=== PATIENT | male | born 1940 | race Caucasian/White ===

== ENCOUNTER 2016-11-15 09:56 | Observation (INO) | payer MEDICARE, OTHER ==
[~2016-11-15] VITALS: Ht 165.1 cm; Wt 55.5 kg
[2016-11-15] VITALS (7 sets, daily range): BP systolic 122–167; BP diastolic 63–76; PULSE 62–78; RESP 18–21; TEMP 98; Ht 165.1 cm; Wt 55.5 kg
[2016-11-15] MEDS ORDERED: ASPIRIN 325 MG TAB PO STA (10:28)
[2016-11-15 11:03] LABS: ADD SCAN DIFF NO
[2016-11-15 11:08] LABS: BASOPHILS % 0.7 % (0.0-2.0); EOSINOPHILS # 0.1 10^3/ul (0.0-0.5); EOSINOPHILS % 2.4 % (0.0-7.0); HEMATOCRIT 30.9 % (42.0-52.0); LYMPHOCYTES # 1.7 10^3/ul (0.8-2.9); LYMPHOCYTES % 29.8 % (15.0-51.0); MEAN CORPUSCULAR HEMOGLOBIN 34.5 pg (29.0-33.0); MEAN CORPUSCULAR HGB CONC 35.6 g/dl (32.0-37.0); MEAN CORPUSCULAR VOLUME 96.9 fl (82.0-101.0); MEAN PLATELET VOLUME 12.1 fl (7.4-10.4); MONOCYTE # 0.4 10^3/ul (0.3-0.9); MONOCYTES % 7.4 % (0.0-11.0); NEUTROPHIL # 3.4 10^3/ul (1.6-7.5); NEUTROPHILS % 59.5 % (39.0-77.0); PLATELET COUNT 188 10^3/UL (140-415); RED BLOOD COUNT 3.19 10^6/ul (4.70-6.10); RED CELL DISTRIBUTION WIDTH 14.5 % (11.5-14.5); WHITE BLOOD COUNT 5.8 10^3/ul (4.8-10.8)
[2016-11-15 11:15] LABS: POTASSIUM 4.2 mmol/L (3.5-5.1)
[2016-11-15 11:16] LABS: INR 1.06; PROTIME 13.8 Sec (12.2-14.2); PT RATIO 1.1
[2016-11-15 11:17] LABS: PARTIAL THROMBOPLASTIN TIME 26.8 Sec (25.0-35.0)
[2016-11-15 11:18] LABS: CALCIUM 9.9 mg/dl (8.4-10.2); CREATININE 1.12 mg/dl (0.61-1.24)
[2016-11-15 11:30] LABS: TROPONIN-I 0.026 ng/ml (0.00-0.12)
--- NOTE | 2016-11-15 11:56 | RADRPT ---
PROCEDURE: XR Chest. CLINICAL INDICATION: Chest Pain. TECHNIQUE: Single frontal view of the chest was obtained. COMPARISON: None available FINDINGS: The cardiomediastinal silhouette is normal size. Pulmonary vasculature is within normal limits. Th ere are sternotomy wires. There is moderate aortic calcification. There is a small left pleural ef fusion. There is increased markings at the left base. There is no pneumothorax.. The osseous structures and soft tissues are unremarkable. IMPRESSION: 1. Small left pleural effusion. Left base atelectasis, versus minimal infiltrate. 2. Moderate aortic calcification. Sternotomy wires. RPTAT: DD .Fausto Fraser MD, MD Date Time Electronically viewed and signed by .Fausto Fraser MD, on 11/15/2016 11:56 .T/
[2016-11-15] MEDS ORDERED: TAMS0.4C2 PO (13:17)
[2016-11-15] MEDS ORDERED: SENN-53 PO (13:17)
[2016-11-15] MEDS ORDERED: CARV3.1260 PO (13:18)
[2016-11-15] MEDS ORDERED: DOCU-159 PO (13:18)
[2016-11-15] MEDS ORDERED: ATOR40TA68 PO (13:19)
[2016-11-15] MEDS ORDERED: LANT3I SC (13:19)
[2016-11-15] MEDS ORDERED: CLOP75TA27 PO (13:19)
[2016-11-15] MEDS ORDERED: ASPI81TA3 PO (13:20)
[2016-11-15] MEDS ORDERED: OFLO5DRO46 BOTH EYES (13:20)
[2016-11-15] MEDS ORDERED: DIFL5DRO OP (13:22)
[2016-11-15] MEDS ORDERED: NEPA1.7D OP (13:23)
--- NOTE | 2016-11-15 13:52 | ERA ---
ER Documentation Chief Complaint Date/Time DATE: 11/15/16 TIME: 13:45 Chief Complaint chest pain intermittent since 11/13/16 HPI This 76-year-old male comes emergency room for chest pain that he states began yesterday. The left side of his chest does not radiate. It was a, there was shortness of breath and nausea when it began. He currently feels the pain says it is moderate. He was supposedly scheduled to come in for catheterization 2 days ago but had trouble with the scheduling and had an allergic reaction to codeine. Currently has no shortness of breath but just the chest pain with no nausea. ROS All systems reviewed and are negative except as per history of present illness. Medications Home Meds Reported Medications Nepafenac (ILEVRO) 1.7 Ml Drops.susp, 1 DROP OP DAILY 11/15/16 Difluprednate (Durezol) 5 Ml Drops, 1 DROP OP BID, BOTTLE 11/15/16 Ofloxacin* (Ocuflox*) 0.3%-5 Ml Ophth Drops, 1 DROP BOTH EYES QID, BOTTLE 11/15/16 Aspirin* (Aspirin* Chew) 81 Mg Tab.chew, 81 MG PO DAILY, TAB.CHEW 11/15/16 Insulin Glargine* (Lantus*) 100 Unit/Ml Soln, 10 UNIT SC QHS, #1 VIAL 11/15/16 Clopidogrel Bisulfate (Clopidogrel) 75 Mg Tablet, 75 MG PO DAILY, #30 TAB 11/15/16 Atorvastatin* (Atorvastatin*) 40 Mg Tablet, 40 MG PO QHS, #30 TAB 11/15/16 Docusate Sodium* (Docusate Sodium*) 100 Mg Capsule, 100 MG PO QHS, #30 CAP 11/15/16 Carvedilol* (Carvedilol*) 3.125 Mg Tablet, 3.125 MG PO BID, #60 TAB 11/15/16 Tamsulosin Hcl* (Tamsulosin Hcl*) 0.4 Mg Cap.er.24h, 0.4 MG PO HS, CAP 11/15/16 Sennosides* (Senna Lax*) 8.6 Mg Tablet, 1 TAB PO DAILY, TAB 11/15/16 Allergies Allergies: Coded Allergies: codeine (Verified Allergy, Severe, 11/15/16) PMhx/Soc Medical and Surgical Hx: pt denies Surgical Hx History of Surgery: No Anesthesia Reaction: No Hx Neurological Disorder: No Hx Respiratory Disorders: No Hx Cardiac Disorders: Yes (hnt, pvd) Hx Psychiatric Problems: No Hx Miscellaneous Medical Probl: Yes (DM) Hx Alcohol Use: No Hx Substance Use: No Hx Tobacco Use: No Smoking Status: Never smoker Physical Exam Vitals Vital Signs Date Time Temp Pulse Resp B/P Pulse Ox O2 Delivery O2 Flow Rate FiO2 11/15/16 11:20 97.9 66 18 152/59 100 Room Air 11/15/16 10:14 97.8 71 18 123/55 99 Physical Exam Const: [] Head: Atraumatic Eyes: Normal Conjunctiva ENT: Normal External Ears, Nose and Mouth. Neck: Full range of motion..~ No meningismus. Resp: Clear to auscultation bilaterally Cardio: Regular rate and rhythm, no murmurs Abd: Soft, non tender, non distended. Normal bowel sounds Skin: No petechiae or rashes Back: No midline or flank tenderness Ext: No cyanosis, or edema Neur: Awake and alert Psych: Normal Mood and Affect Result Diagram: 11/15/16 1045 11/15/16 1045 Results 24 hrs Laboratory Tests Test 11/15/16 10:45 Activated Partial Thromboplast Time 26.8Sec Anion Gap 16 Basophils # 0.010^3/ul Basophils % 0.7% Blood Urea Nitrogen 29mg/dl Calcium Level 9.9mg/dl Carbon Dioxide Level 27mmol/L Chloride Level 107mmol/L Creatinine 1.12mg/dl Eosinophils # 0.110^3/ul Eosinophils % 2.4% Glucose Level 163mg/dl Hematocrit 30.9% Hemoglobin 11.0g/dl INR International Normalized Ratio 1.06 Lymphocytes # 1.710^3/ul Lymphocytes % 29.8% Mean Corpuscular Hemoglobin 34.5pg Mean Corpuscular Hemoglobin Concent 35.6g/dl Mean Corpuscular Volume 96.9fl Mean Platelet Volume 12.1fl Monocytes # 0.410^3/ul Monocytes % 7.4% Neutrophils # 3.410^3/ul Neutrophils % 59.5% Nucleated Red Blood Cells # 0.010^3/ul Nucleated Red Blood Cells % 0.0/100WBC Platelet Count 54409^3/UL Potassium Level 4.2mmol/L Prothrombin Time 13.8Sec Prothrombin Time Ratio 1.1 Red Blood Count 3.1910^6/ul Red Cell Distribution Width 14.5% Sodium Level 146mmol/L Troponin I 0.026ng/ml White Blood Count 5.810^3/ul Current Medications Medications (Trade) Dose Ordered Sig/Mellissa Route PRN Reason Start Time Stop Time Status Last Admin Dose Admin Aspirin (Aspirin) 325 mg ONCE STAT PO 11/15/16 10:28 11/15/16 10:30 DC 11/15/16 10:48 Procedures/MDM Chest pain with concerning EKG changes. Initial troponin is negative. Patient was given 325 mg aspirin. His chest pain was described as intermittent did resolve on its own emergency room. I do feel this patient is a high risk for acute coronary syndrome and should be admitted for serial turning of troponins and further cardiac evaluation as he did miss scheduled catheterization appointment. Spoke with Dr. Hughes will be admitting the patient telemetry. EKG interpretation: Normal sinus rhythm with first-degree AV block, normal axis , single PVC, lateral T-wave inversions and slight ST depressions concerning for ischemia, no ST elevations concerning for STEMI, no prior EKG is available for comparison technical marketing consultant interpretation: Normal sinus rhythm with occasional PVCs Chest x-ray interpretation: Severe acute process, possible layering along the medial left diaphragm suspicious for a pleural effusion, I see no infiltrates, no pneumothorax, no pulmonary edema, no fractures Departure Diagnosis: Primary Impression: Chest pain Additional Impressions: Acute electrocardiogram changes Normocytic anemia Condition: Stable SALINAS MADRIGAL DO Nov 15, 2016 13:52
[2016-11-15] MEDS ORDERED: ONDANSETRON 4 MG INJ IV PRN ×2 (14:00→17:00)
[2016-11-15] MEDS ORDERED: ACETAMINOPHEN 325 MG TAB PO PRN ×2 (14:00→17:00)
[2016-11-15] MEDS ORDERED: NACL 0.9% 3 ML SYG IV SCH (17:00)
[2016-11-15] MEDS ORDERED: DOCUSATE SODIUM 100 MG CAP PO PRN (17:00)
[2016-11-15] MEDS ORDERED: morphine 2 MG INJ IV PRN (17:00)
[2016-11-15] MEDS ORDERED: NITROGLYCERIN (SL) 0.4 MG TAB SL PRN (17:00)
[2016-11-15] MEDS ORDERED: LORAZEPAM 0.5 MG TAB PO PRN (17:00)
[2016-11-15 17:19] LABS: TROPONIN-I 0.026 ng/ml (0.00-0.12)
[2016-11-15 17:20] LABS: CK-MB 1.64 ng/ml (0.0-2.4)
[2016-11-15] MEDS ORDERED: GLUCOSE GEL 15 GRAM TUBE BUCCAL PRN (17:30)
[2016-11-15] MEDS ORDERED: GLUCOSE GEL 15 GRAM TUBE PO PRN ×2 (17:30)
[2016-11-15] MEDS ORDERED: GLUCAGON 1 MG INJ IM PRN (17:30)
[2016-11-15] MEDS ORDERED: DEXTROSE 50% 50 ML SYRINGE IV PRN ×2 (17:30)
[2016-11-15] MEDS: OFLOXACIN 0.3% 5 ML OPH BOTH EYES SCH ×2 (18:00→20:41)
[2016-11-15] MEDS: ASPIRIN 81 MG TAB PO SCH (18:06)
--- NOTE | 2016-11-15 18:18 | CONS ---
Date/Time of Note Date/Time of Note DATE: 11/15/16 TIME: 18:08 Assessment/Plan Assessment/Plan Chief Complaint/Hosp Course Unstable angina: Pt has been having several episodes of rest angina over the past 2 days. He was supposed to have a cath done at [facility] per report but due to insurance reasons he is now admitted here. CAD s/p CAB yrs ago, unknown details PVD: left fem-tib bypass, right SFA and below knee disease with claudication DM HTN HL -plan for cath tomorrow for definitive coronary/graft evaluation -NPO after midnight -continue ASA/plavix, coreg -if recurrent chest pain or elevated trops, start heparin drip -echo Problems: Consultation Date/Type/Reason Admit Date/Time Nov 15, 2016 at 14:38 Date of Consultation: Nov 15, 2016 Type of Consultation: Cardiology Reason for Consultation Chest pain Referring Provider: MALIKA LEDEZMA MD Hx of Present Illness 76 yo M with a h/o CAD s/p CABG (10 yrs ago in [place], unknown details), PVD ( left fem-tib bypass, significant right SFA disease with claudication), DM, HTN, HL, who was admitted for chest pain. The family was used for interpretation but apparently the pt started to have chest pain 2 days ago and was hospitalized at [facility]. Per report he was suppsoed to have a cardiac cath but due to insurance issues, the pt had to be transferred to [facility]. The pt however left AMA and went home but he had more chest pain today so the family brought him in. The pt notes the chest pain is substernal and pressure like and like his prior anginal episodes. No SOB, orthopnea, PND, edema. He has been having significant right leg claudication but no rest pain. He is currently asymptomatic. per HPI Past Medical History per HPI Social History Smoking Status: Never smoker Exam/Review of Systems Vital Signs Vitals Vital Signs Date Time Temp Pulse Resp B/P Pulse Ox O2 Delivery O2 Flow Rate FiO2 11/15/16 16:26 62 11/15/16 16:00 97.4 18 167/76 99 11/15/16 14:28 Room Air Exam Constitutional: alert, oriented Psych: no complaints Head: atraumatic, normocephalic Neck: No jvd Respiratory: clear to auscultation, No crackles/rales Cardiovascular: regular rate and rhythm, No edema, No nl pulses (2+ femoral, faint DP/PT on right ) Neurological: nl mental status, nl speech Results EKG: sinus, lateral TW inversions seen on prior EKGs Result Diagram: 11/15/16 1045 11/15/16 1045 Results 24 hrs Laboratory Tests Test 11/15/16 10:45 11/15/16 16:28 Activated Partial Thromboplast Time 26.8 Anion Gap 16 Basophils # 0.0 Basophils % 0.7 Blood Urea Nitrogen 29 H Calcium Level 9.9 Carbon Dioxide Level 27 Chloride Level 107 Creatinine 1.12 Eosinophils # 0.1 Eosinophils % 2.4 Glucose Level 163 Hematocrit 30.9 L Hemoglobin 11.0 L INR International Normalized Ratio 1.06 Lymphocytes # 1.7 Lymphocytes % 29.8 Mean Corpuscular Hemoglobin 34.5 H Mean Corpuscular Hemoglobin Concent 35.6 Mean Corpuscular Volume 96.9 Mean Platelet Volume 12.1 H Monocytes # 0.4 Monocytes % 7.4 Neutrophils # 3.4 Neutrophils % 59.5 Nucleated Red Blood Cells # 0.0 Nucleated Red Blood Cells % 0.0 Platelet Count 188 Potassium Level 4.2 Prothrombin Time 13.8 Prothrombin Time Ratio 1.1 Red Blood Count 3.19 L Red Cell Distribution Width 14.5 Sodium Level 146 H Troponin I 0.026 0.026 White Blood Count 5.8 Creatine Kinase 74 Creatine Kinase Index 2.2 Creatinine Kinase MB (Mass) 1.64 Medications Medications Current Medications Aspirin (Aspirin) 81 mg DAILY PO Last administered on 11/15/16t 18:06; Admin Dose 81 MG; Start 11/15/16 at 18:00 Atorvastatin Calcium (Lipitor) 40 mg QHS PO ; Start 11/15/16 at 21:00 Carvedilol (Coreg) 3.125 mg BID PO ; Start 11/15/16 at 21:00 Clopidogrel Bisulfate (plaVIX) 75 mg DAILY PO ; Start 11/16/16 at 09:00 Docusate Sodium (Colace) 100 mg QHS PO ; Start 11/15/16 at 21:00 Insulin Glargine (Lantus) 10 unit QHS SC ; Start 11/15/16 at 21:00 Ofloxacin (Ocuflox) 1 drop QID BOTH EYES ; Start 11/15/16 at 18:00 Senna (Senokot) 1 tab DAILY PO ; Start 11/16/16 at 09:00 Tamsulosin HCl (Flomax) 0.4 mg HS PO ; Start 11/15/16 at 21:00 Miscellaneous Information 1 drop BID OP ; Start 11/15/16 at 21:00; Status UNV Lorazepam (Ativan) 0.5 mg Q8H PRN PO ANXIETY; Start 11/15/16 at 17:00 Ondansetron HCl (Zofran Inj) 4 mg Q6H PRN IV NAUSEA AND/OR VOMITING; Start 11/15 at 17:00 Nitroglycerin (Nitroglycerin (Sl Tab) 0.4 Mg) 1 tab Q5M PRN SL CHEST PAIN; Start 11/15/16 at 17:00 Acetaminophen (Tylenol Tab) 650 mg Q6H PRN PO PAIN LEVEL 1-3 OR FEVER; Start at 17:00 Morphine Sulfate (morphine) 1 mg Q4H PRN IV PAIN LEVEL 7-10; Start 11/15/16 at 17:00 Docusate Sodium (Colace) 100 mg Q12H PRN PO CONSTIPATION; Start 11/15/16 at 17: 00 Pantoprazole (Protonix Tab) 40 mg DAILY@06 PO ; Start 11/16/16 at 06:00 Enoxaparin Sodium (Lovenox) 40 mg DAILY SC ; Start 11/16/16 at 09:00 Miscellaneous Information 1 ea NOTE XX ; Start 11/15/16 at 17:30 Glucose (Glutose) 15 gm Q15M PRN PO DECREASED GLUCOSE; Start 11/15/16 at 17:30 Glucose (Glutose) 22.5 gm Q15M PRN PO DECREASED GLUCOSE; Start 11/15/16 at 17:30 Dextrose (D50w Syringe) 25 ml Q15M PRN IV DECREASED GLUCOSE; Start 11/15/16 at 17:30 Dextrose (D50w Syringe) 50 ml Q15M PRN IV DECREASED GLUCOSE; Start 11/15/16 at 17:30 Glucagon (Glucagen) 1 mg Q15M PRN IM DECREASED GLUCOSE; Start 11/15/16 at 17:30 Glucose (Glutose) 15 gm Q15M PRN BUCCAL DECREASED GLUCOSE; Start 11/15/16 at 17: 30 Nepafenac (Nevanac Oph) 1 drop DAILY OPER ; Start 11/16/16 at 09:00; Status UNV Miscellaneous Information (*Order Clarification Bulletin) MEDICATION REQUIRES CLARIFICATION: Q8H XX Last administered on 11/15/16t 18:06; Admin Dose 1 EA; Start 11/15/16 at 18:00 CARLA QUINN Nov 15, 2016 18:17
--- NOTE | 2016-11-15 18:56 | HP ---
DATE OF ADMISSION: 11/15/2016 CONSULTANTS: 1. Cardiology. 2. Vascular surgery. CHIEF COMPLAINT: Chest pain. HISTORY OF PRESENT ILLNESS: This is a 76-year-old gentleman with past medical history of peripheral vascular disease, coronary artery disease status post CABG, dyslipidemia, hypertension, diabetes me llitus, diabetic nephropathy, diabetic neuropathy, BPH, who was sent by his primary care physician [facility] for evaluation of lower extremity arteries secondary to finding some abnormality on [facility] angiogram. Patient decided to sign AMA and left home. Today, patient presents to [facility] complaining of having chest discomfort. Upon evaluation in the ER, patient's EKG demonstrated normal sinus rhythm with first degree AV block, normal axis, single PVC, lateral T-wav e inversion with slight ST depression concerning for ischemia, no ST elevation, concerning for STEMI . Patient was treated with aspirin. At this time, the patient denies any chest pain, shortness of breath, nausea, vomiting, diarrhea. No headache, dizziness, lightheadedness. No change in visual a cuity, diplopia, photophobia. No abdominal pain or any other discomfort. Patient is accompanied wi th his son, his daughter, and his at the bedside. PAST MEDICAL AND SURGICAL HISTORY: As above per HPI. History of CABG, peripheral vascular disease, dyslipidemia, hypertension, BPH, diabetes mellitus, diabetic neuropathy, hypertension. MEDICATIONS: 1. Aspirin 81 mg. 2. Lipitor 40 mg. 3. Coreg 3.125 mg. 4. Plavix 75 mg. 5. Durezol drop. 6. Colace 100 mg. 7. Lantus 10 units. 8. Ilevro drop. 9. Ofloxacin drop. 10. Senna 1 tab p.o. daily. 11. Flomax 0.4 mg. ALLERGIES: CODEINE. SOCIAL HISTORY: Positive for history of smoking, no illicit drugs. No alcohol. FAMILY HISTORY: Positive for hypertension, dyslipidemia, coronary artery disease. REVIEW OF SYSTEMS: As above per HPI. Otherwise, 12 systems were found to be negative. PHYSICAL EXAMINATION: VITAL SIGNS: Temperature 97.4, pulse 65, respiration 18, blood pressure 167/76, oxygen saturating 99% on room air. GENERAL APPEARANCE: The patient is lying in bed comfortably without any distress. He is awake, luanne rt, oriented. He is able to answer my questions properly. EYES AND ENT: Conjunctivae and lids are normal. Pupils are normal. Extraocular movements normal. Hearing grossly normal. Lips and tongue are normal. Oral mucosa is moist. NECK: Supple. Trachea is midline. No lymphadenopathy. RESPIRATORY: Effort is normal. Clear to auscultation bilaterally. CARDIOVASCULAR: Normal S1, S2. Regular rhythm and rate. No murmur, no bruits, no edema. Peripher al pulses, radial pulses palpable. Cap refill is normal. CHEST: Normal expansion of thorax during inspiration. GASTROINTESTINAL: Abdomen is soft, nontender, not distended. Bowel sounds present. No guarding, n o rebound. GENITOURINARY: Deferred. MUSCULOSKELETAL: Upper and lower extremities within normal limits. Full range of motion, strength 5/5 both upper and lower extremities. NEUROLOGIC: Cranial nerves II through XII are grossly intact. She is awake, alert, oriented. PSYCHIATRIC: Normal judgment and insight. Alert and oriented x3. Mood and affect is normal. LABORATORY WORK AND IMAGING: There is evidence of angioplasty and surgical intervention and scars o n bilateral lower extremities. WBC 5.8, hemoglobin 11, hematocrit 30.9, platelets 188. Sodium 146, potassium 4.2, chloride 107, bi carbonate 27, BUN 29, creatinine 1.12, glucose 163. Troponin 0.026. ASSESSMENT AND PLAN: 1. Chest pain with a history of coronary artery disease and coronary artery bypass graft. Patien t will continue on aspirin, Plavix, statin, beta waqar. 2. Dyslipidemia. Continue statin. 3. History of peripheral vascular disease. Vascular surgeon has been consulted. 4. Benign prostatic hypertrophy. Continue Flomax. 5. Essential hypertension, well controlled on carvedilol. 6. Peripheral vascular disease. Continue aspirin and statin. Vascular surgeon has been consulted. 7. Diabetes mellitus. Continue Lantus insulin sliding scale, low carb diet. 8. Will continue to monitor patient closely. Further recommendations, management, and treatment as per clinical course. Total amount of time discharge workup 40 minutes. Dictated By: MALIKA LEE/NTS Conf#: [id number] DID#: [id number]
[2016-11-15] MEDS: DOCUSATE SODIUM 100 MG CAP PO SCH (20:37)
[2016-11-15] MEDS: TAMSULOSIN (SR) 0.4 MG CAP PO SCH (20:39)
[2016-11-15] MEDS: ATORVASTATIN 40 MG TAB PO SCH (20:39)
[2016-11-15] MEDS: INSULIN GLARGINE [LANtus] 3 ML PEN SC SCH (20:58)
[2016-11-15] MEDS ORDERED: DIFLUPREDNATE OP SCH (21:00)
[2016-11-15] MEDS ORDERED: INSULIN GLARGINE [LANtus] 3 ML PEN SC ONE (21:00)
[2016-11-15 23:39] LABS: CK-MB 1.6 ng/ml (0.0-2.4)
[2016-11-15 23:41] LABS: TROPONIN-I 0.045 ng/ml (0.00-0.12)
[2016-11-16] VITALS (19 sets, daily range): BP systolic 110–142; BP diastolic 54–67; PULSE 58–68; RESP 16–25
[2016-11-16] MEDS: PANTOPRAZOLE (EC) 40 MG TAB PO SCH (05:06)
[2016-11-16 06:15] LABS: ADD SCAN DIFF NO
[2016-11-16 06:22] LABS: BASOPHILS % 0.6 % (0.0-2.0); EOSINOPHILS # 0.2 10^3/ul (0.0-0.5); EOSINOPHILS % 3.8 % (0.0-7.0); HEMATOCRIT 27.7 % (42.0-52.0); HEMOGLOBIN 9.8 g/dl (14.0-18.0); LYMPHOCYTES # 1.8 10^3/ul (0.8-2.9); LYMPHOCYTES % 38.1 % (15.0-51.0); MEAN CORPUSCULAR HEMOGLOBIN 34.1 pg (29.0-33.0); MEAN CORPUSCULAR HGB CONC 35.4 g/dl (32.0-37.0); MEAN CORPUSCULAR VOLUME 96.5 fl (82.0-101.0); MEAN PLATELET VOLUME 11.7 fl (7.4-10.4); MONOCYTE # 0.4 10^3/ul (0.3-0.9); MONOCYTES % 9.2 % (0.0-11.0); NEUTROPHIL # 2.3 10^3/ul (1.6-7.5); NEUTROPHILS % 47.9 % (39.0-77.0); PLATELET COUNT 161 10^3/UL (140-415); RED BLOOD COUNT 2.87 10^6/ul (4.70-6.10); RED CELL DISTRIBUTION WIDTH 14.5 % (11.5-14.5); WHITE BLOOD COUNT 4.8 10^3/ul (4.8-10.8)
[2016-11-16 06:40] LABS: POTASSIUM 4.1 mmol/L (3.5-5.1)
[2016-11-16 06:43] LABS: CREATININE 0.99 mg/dl (0.61-1.24)
[2016-11-16 06:44] LABS: CALCIUM 9.1 mg/dl (8.4-10.2); CHOL/HDL RATIO 3.5 RATIO; MAGNESIUM 1.6 mg/dl (1.7-2.5)
[2016-11-16 06:48] LABS: TROPONIN-I 0.045 ng/ml (0.00-0.12)
[2016-11-16 06:49] LABS: CK-MB 1.44 ng/ml (0.0-2.4)
[2016-11-16] MEDS ORDERED: NON-FORMULARY/PATIENT OWN MED (Nepafenac (Ilevro) 1 DROP) OP SCH (09:00)
[2016-11-16] MEDS ORDERED: MAGNESIUM SULFATE 4 GM/100 ML 100 ML IVPB ONE (09:00)
[2016-11-16] MEDS: OFLOXACIN 0.3% 5 ML OPH BOTH EYES SCH ×4 (09:00→20:51)
[2016-11-16] MEDS ORDERED: NEPAFENAC 0.1% 3 ML OPH OPER SCH (09:00)
--- NOTE | 2016-11-16 09:15 | CONS ---
Date/Time of Note Date/Time of Note DATE: 11/16/16 TIME: 09:14 Assessment/Plan Assessment/Plan Chief Complaint/Hosp Course Unstable angina: Pt has been having several episodes of rest angina over the past 2 days. He was supposed to have a cath done at [facility] per report but due to insurance reasons he is now admitted here. CAD s/p CAB yrs ago, unknown details PVD: left fem-tib bypass, right SFA and below knee disease with claudication DM HTN HL -plan for cath this afternoon for evaluation -NPO -continue ASA/plavix, coreg -echo Problems: Consultation Date/Type/Reason Admit Date/Time Nov 15, 2016 at 13:45 Initial Consult Date 11/15/16 Type of Consultation: Cardiology Referring Provider: MALIKA LEDEZMA MD 24 HR Interval Summary Free Text/Dictation No chest pain or SOB. Exam/Review of Systems Vital Signs Vitals Vital Signs Date Time Temp Pulse Resp B/P Pulse Ox O2 Delivery O2 Flow Rate FiO2 11/16/16 08:11 58 11/16/16 07:17 98.2 18 119/56 100 11/15/16 14:45 Room Air Intake and Output 11/15/16 11/15/16 11/16/16 15:00 23:00 07:00 Intake Total 120 ml 60 ml Output Total 200 ml 250 ml Balance -80 ml -190 ml Exam Constitutional: alert, oriented Head: normocephalic Neck: No jvd Respiratory: clear to auscultation, No crackles/rales Cardiovascular: regular rate and rhythm, systolic murmur (2/6 RHYS), No edema Gastrointestinal: soft Extremities: No normal pulses Neurological: nl mental status, nl speech Results Result Diagram: 11/16/16 0532 11/16/16 0537 Results 24 hrs Laboratory Tests Test 11/15/16 10:45 11/15/16 16:28 11/15/16 20:17 11/15/16 23:00 Activated Partial Thromboplast Time 26.8 Anion Gap 16 Basophils # 0.0 Basophils % 0.7 Blood Urea Nitrogen 29 H Calcium Level 9.9 Carbon Dioxide Level 27 Chloride Level 107 Creatinine 1.12 Eosinophils # 0.1 Eosinophils % 2.4 Glucose Level 163 Hematocrit 30.9 L Hemoglobin 11.0 L INR International Normalized Ratio 1.06 Lymphocytes # 1.7 Lymphocytes % 29.8 Mean Corpuscular Hemoglobin 34.5 H Mean Corpuscular Hemoglobin Concent 35.6 Mean Corpuscular Volume 96.9 Mean Platelet Volume 12.1 H Monocytes # 0.4 Monocytes % 7.4 Neutrophils # 3.4 Neutrophils % 59.5 Nucleated Red Blood Cells # 0.0 Nucleated Red Blood Cells % 0.0 Platelet Count 188 Potassium Level 4.2 Prothrombin Time 13.8 Prothrombin Time Ratio 1.1 Red Blood Count 3.19 L Red Cell Distribution Width 14.5 Sodium Level 146 H Troponin I 0.026 0.026 0.045 White Blood Count 5.8 Creatine Kinase 74 71 Creatine Kinase Index 2.2 2.3 Creatinine Kinase MB (Mass) 1.64 1.60 Bedside Glucose 166 Test 11/16/16 02:27 11/16/16 05:07 11/16/16 05:32 11/16/16 05:37 Bedside Glucose 146 Creatine Kinase 62 Creatine Kinase Index 2.3 Creatinine Kinase MB (Mass) 1.44 Troponin I 0.045 Basophils # 0.0 Basophils % 0.6 Eosinophils # 0.2 Eosinophils % 3.8 Hematocrit 27.7 L Hemoglobin 9.8 L Lymphocytes # 1.8 Lymphocytes % 38.1 Mean Corpuscular Hemoglobin 34.1 H Mean Corpuscular Hemoglobin Concent 35.4 Mean Corpuscular Volume 96.5 Mean Platelet Volume 11.7 H Monocytes # 0.4 Monocytes % 9.2 Neutrophils # 2.3 Neutrophils % 47.9 Nucleated Red Blood Cells # 0.0 Nucleated Red Blood Cells % 0.0 Platelet Count 161 Red Blood Count 2.87 L Red Cell Distribution Width 14.5 White Blood Count 4.8 Anion Gap 14 Blood Urea Nitrogen 24 H Calcium Level 9.1 Carbon Dioxide Level 27 Chloride Level 107 Cholesterol Level 125 Cholesterol/HDL Ratio 3.5 Creatinine 0.99 Glucose Level 111 # HDL Cholesterol 35 LDL Cholesterol, Calculated 72 Magnesium Level 1.6 L Potassium Level 4.1 Sodium Level 144 Triglycerides Level 92 Medications Medications Current Medications Aspirin (Aspirin) 81 mg DAILY PO Last administered on 11/15/16 18:06; Admin Dose 81 MG; Start 11/15/16 at 18:00 Atorvastatin Calcium (Lipitor) 40 mg QHS PO Last administered on 11/15/16 20:39 ; Admin Dose 40 MG; Start 11/15/16 at 21:00 Carvedilol (Coreg) 3.125 mg BID PO Last administered on 11/15/16 20:39; Admin Dose 3.125 MG; Start 11/15/16 at 21:00 Clopidogrel Bisulfate (plaVIX) 75 mg DAILY PO ; Start 11/16/16 at 09:00 Docusate Sodium (Colace) 100 mg QHS PO Last administered on 11/15/16 20:37; Admin Dose 100 MG; Start 11/15/16 at 21:00 Insulin Glargine (Lantus) 10 unit QHS SC ; Start 11/15/16 at 21:00 Ofloxacin (Ocuflox) 1 drop QID BOTH EYES ; Start 11/15/16 at 18:00 Senna (Senokot) 1 tab DAILY PO ; Start 11/16/16 at 09:00 Tamsulosin HCl (Flomax) 0.4 mg HS PO Last administered on 11/15/16 20:39; Admin Dose 0.4 MG; Start 11/15/16 at 21:00 Miscellaneous Information 1 drop BID OP ; Start 11/15/16 at 21:00; Status UNV Lorazepam (Ativan) 0.5 mg Q8H PRN PO ANXIETY; Start 11/15/16 at 17:00 Ondansetron HCl (Zofran Inj) 4 mg Q6H PRN IV NAUSEA AND/OR VOMITING; Start 11/15 at 17:00 Nitroglycerin (Nitroglycerin (Sl Tab) 0.4 Mg) 1 tab Q5M PRN SL CHEST PAIN; Start 11/15/16 at 17:00 Acetaminophen (Tylenol Tab) 650 mg Q6H PRN PO PAIN LEVEL 1-3 OR FEVER; Start at 17:00 Morphine Sulfate (morphine) 1 mg Q4H PRN IV PAIN LEVEL 7-10; Start 11/15/16 at 17:00 Docusate Sodium (Colace) 100 mg Q12H PRN PO CONSTIPATION; Start 11/15/16 at 17: 00 Pantoprazole (Protonix Tab) 40 mg DAILY@06 PO ; Start 11/16/16 at 06:00 Enoxaparin Sodium (Lovenox) 40 mg DAILY SC ; Start 11/16/16 at 09:00 Miscellaneous Information 1 ea NOTE XX ; Start 11/15/16 at 17:30 Glucose (Glutose) 15 gm Q15M PRN PO DECREASED GLUCOSE; Start 11/15/16 at 17:30 Glucose (Glutose) 22.5 gm Q15M PRN PO DECREASED GLUCOSE; Start 11/15/16 at 17:30 Dextrose (D50w Syringe) 25 ml Q15M PRN IV DECREASED GLUCOSE; Start 11/15/16 at 17:30 Dextrose (D50w Syringe) 50 ml Q15M PRN IV DECREASED GLUCOSE; Start 11/15/16 at 17:30 Glucagon (Glucagen) 1 mg Q15M PRN IM DECREASED GLUCOSE; Start 11/15/16 at 17:30 Glucose (Glutose) 15 gm Q15M PRN BUCCAL DECREASED GLUCOSE; Start 11/15/16 at 17: 30 Nepafenac (Nevanac Oph) 1 drop DAILY OPER ; Start 11/16/16 at 09:00; Status UNV Miscellaneous Information MEDICATION REQUIRES CLARIFICATION: Q8H XX Last administered on 11/15/16t 18:06; Admin Dose 1 EA; Start 11/15/16 at 18:00 Magnesium Sulfate (Magnesium Sulfate 4 Gm/100 ml) 100 ml @ 25 mls/hr ONCE ONCE IVPB ; Start 11/16/16 at 09:00; Stop 11/16/16 at 12:59 CARLA QUINN Nov 16, 2016 09:15
[2016-11-16] MEDS: ASPIRIN 81 MG TAB PO SCH (09:57)
[2016-11-16] MEDS: CLOPIDOGREL 75 MG TAB PO SCH (09:57)
[2016-11-16] MEDS: SENNA TAB PO SCH (09:58)
[2016-11-16] MEDS: ENOXAPARIN 40 MG/0.4 ML SYG SC SCH (10:01)
--- NOTE | 2016-11-16 13:30 | PN ---
Date/Time of Note Date/Time of Note DATE: 11/16/16 TIME: 13:27 Assessment/Plan VTE Prophylaxis VTE Prophylaxis Intervention: LMWH Lines/Catheters IV [facility]from [facility] Assessment/Plan Chief Complaint/Hosp Course ASSESSMENT AND PLAN: 1. Chest pain with a history of coronary artery disease and coronary artery bypass graft. Patient will continue on aspirin, Plavix, statin, beta waqar. Plan for left heart catheterization today, follow-up cardiology recommendations 2. Dyslipidemia. Continue statin. 3. History of peripheral vascular disease. Vascular surgeon has been consulted. 4. Benign prostatic hypertrophy. Continue Flomax. 5. Essential hypertension, well controlled on carvedilol. 6. Peripheral vascular disease. Continue aspirin and statin. Vascular surgeon has been consulted. 7. Diabetes mellitus. Continue Lantus insulin sliding scale, low carb diet. Will continue to monitor patient closely. Further recommendations, management , and treatment as per clinical course. Problems: Subjective 24 Hr Interval Summary Free Text/Dictation Patient denies of any chest pain or shortness of breath No nausea vomiting diarrhea N.p.o. for upcoming procedure Exam/Review of Systems Vital Signs Vitals Vital Signs Date Time Temp Pulse Resp B/P Pulse Ox O2 Delivery O2 Flow Rate FiO2 11/16/16 12:37 60 11/16/16 11:10 98.0 18 134/55 99 11/15/16 14:45 Room Air Intake and Output 11/15/16 11/15/16 11/16/16 15:00 23:00 07:00 Intake Total 120 ml 60 ml Output Total 200 ml 250 ml Balance -80 ml -190 ml Exam General: The patient is well-developed, Not in acute distress. HEENT: Atraumatic, normocephalic. The pupils are equal and round . Neck: Supple with full range of motion. Chest: Normal expansion of the thorax during inspiration Lungs: Clear to auscultation bilaterally Heart: Normal S1-S2, Regular rhythm and rate. Abdomen: Soft , nontender, nondistended , bowel sounds are present. Extremities: Normal to inspection, no edema no cyanosis Neurologic: Normal mental status,The patient is awake, alert and oriented . Results Result Diagram: 11/16/16 0532 11/16/16 0537 Results 24 hrs Laboratory Tests Test 11/15/16 16:28 11/15/16 20:17 11/15/16 23:00 11/16/16 02:27 Creatine Kinase 74 71 Creatine Kinase Index 2.2 2.3 Creatinine Kinase MB (Mass) 1.64 1.60 Troponin I 0.026 0.045 Bedside Glucose 166 146 Test 11/16/16 05:07 11/16/16 05:32 11/16/16 05:37 11/16/16 05:44 Creatine Kinase 62 Creatine Kinase Index 2.3 Creatinine Kinase MB (Mass) 1.44 Troponin I 0.045 Basophils # 0.0 Basophils % 0.6 Eosinophils # 0.2 Eosinophils % 3.8 Hematocrit 27.7 L Hemoglobin 9.8 L Lymphocytes # 1.8 Lymphocytes % 38.1 Mean Corpuscular Hemoglobin 34.1 H Mean Corpuscular Hemoglobin Concent 35.4 Mean Corpuscular Volume 96.5 Mean Platelet Volume 11.7 H Monocytes # 0.4 Monocytes % 9.2 Neutrophils # 2.3 Neutrophils % 47.9 Nucleated Red Blood Cells # 0.0 Nucleated Red Blood Cells % 0.0 Platelet Count 161 Red Blood Count 2.87 L Red Cell Distribution Width 14.5 White Blood Count 4.8 Anion Gap 14 Blood Urea Nitrogen 24 H Calcium Level 9.1 Carbon Dioxide Level 27 Chloride Level 107 Cholesterol Level 125 Cholesterol/HDL Ratio 3.5 Creatinine 0.99 Glucose Level 111 # HDL Cholesterol 35 LDL Cholesterol, Calculated 72 Magnesium Level 1.6 L Potassium Level 4.1 Sodium Level 144 Triglycerides Level 92 Hemoglobin A1c 9.9 H Medications Medications Current Medications Aspirin (Aspirin) 81 mg DAILY PO Last administered on 11/16/16 09:57; Admin Dose 81 MG; Start 11/15/16 at 18:00 Atorvastatin Calcium (Lipitor) 40 mg QHS PO Last administered on 11/15/16 20:39 ; Admin Dose 40 MG; Start 11/15/16 at 21:00 Carvedilol (Coreg) 3.125 mg BID PO Last administered on 11/16/16 09:58; Admin Dose 3.125 MG; Start 11/15/16 at 21:00 Clopidogrel Bisulfate (plaVIX) 75 mg DAILY PO Last administered on 11/16/16 09 :57; Admin Dose 75 MG; Start 11/16/16 at 09:00 Docusate Sodium (Colace) 100 mg QHS PO Last administered on 11/15/16 20:37; Admin Dose 100 MG; Start 11/15/16 at 21:00 Insulin Glargine (Lantus) 10 unit QHS SC ; Start 11/15/16 at 21:00 Ofloxacin (Ocuflox) 1 drop QID BOTH EYES ; Start 11/15/16 at 18:00 Senna (Senokot) 1 tab DAILY PO Last administered on 11/16/16 09:58; Admin Dose 1 TAB; Start 11/16/16 at 09:00 Tamsulosin HCl (Flomax) 0.4 mg HS PO Last administered on 11/15/16 20:39; Admin Dose 0.4 MG; Start 11/15/16 at 21:00 Miscellaneous Information 1 drop BID OP ; Start 11/15/16 at 21:00; Status UNV Lorazepam (Ativan) 0.5 mg Q8H PRN PO ANXIETY; Start 11/15/16 at 17:00 Ondansetron HCl (Zofran Inj) 4 mg Q6H PRN IV NAUSEA AND/OR VOMITING; Start 11/15 at 17:00 Nitroglycerin (Nitroglycerin (Sl Tab) 0.4 Mg) 1 tab Q5M PRN SL CHEST PAIN; Start 11/15/16 at 17:00 Acetaminophen (Tylenol Tab) 650 mg Q6H PRN PO PAIN LEVEL 1-3 OR FEVER; Start at 17:00 Morphine Sulfate (morphine) 1 mg Q4H PRN IV PAIN LEVEL 7-10; Start 11/15/16 at 17:00 Docusate Sodium (Colace) 100 mg Q12H PRN PO CONSTIPATION; Start 11/15/16 at 17: 00 Pantoprazole (Protonix Tab) 40 mg DAILY@06 PO ; Start 11/16/16 at 06:00 Enoxaparin Sodium (Lovenox) 40 mg DAILY SC Last administered on 11/16/16 10:01 ; Admin Dose 40 MG; Start 11/16/16 at 09:00 Miscellaneous Information 1 ea NOTE XX ; Start 11/15/16 at 17:30 Glucose (Glutose) 15 gm Q15M PRN PO DECREASED GLUCOSE; Start 11/15/16 at 17:30 Glucose (Glutose) 22.5 gm Q15M PRN PO DECREASED GLUCOSE; Start 11/15/16 at 17:30 Dextrose (D50w Syringe) 25 ml Q15M PRN IV DECREASED GLUCOSE; Start 11/15/16 at 17:30 Dextrose (D50w Syringe) 50 ml Q15M PRN IV DECREASED GLUCOSE; Start 11/15/16 at 17:30 Glucagon (Glucagen) 1 mg Q15M PRN IM DECREASED GLUCOSE; Start 11/15/16 at 17:30 Glucose (Glutose) 15 gm Q15M PRN BUCCAL DECREASED GLUCOSE; Start 11/15/16 at 17: 30 Nepafenac ([place] Oph) 1 drop DAILY OPER ; Start 11/16/16 at 09:00; Status UNV Miscellaneous Information (*Order Clarification Bulletin) MEDICATION REQUIRES CLARIFICATION: Q8H XX Last administered on 11/16/16 10:04; Admin Dose 1 EA; Start 11/15/16 at 18:00 MALIKA LEDEZMA MD Nov 16, 2016 13:30
--- NOTE | 2016-11-16 14:07 | RADRPT ---
Echocardiogram Report Patient Name: KELSEY STANLEY Gender: Male Date: 1940 Study Date: 16-Nov-2016 Ceo: Ludwin Zhu [facility] Location: 519 Ref. Physician: MALIKA LEDEZMA Quality: Technically Difficult Study Procedures: Transthoracic echocardiogram with complete 2D, M-Mode, and doppler examination. Indications: Chest Pain. 2D/M Mode Doppler Measurement Value Normal Ranges Measurement Value Normal Ranges LVIDd 2D 5.4 3.5 - 5.6 cm AV Peak Simone 1.1 m/sec LVIDs 2D 5.0 2.1 - 4.1 cm AV Peak PG 4.8 mmHg LVPWd 2D 1.2 0.6 - 1.1 cm AI Peak PG 44.1 mmHg IVSd 2D 1.2 0.6 - 1.1 cm AI Peak Simone 3.3 m/sec AoR Diam 2D 2.7 2.0 - 3.7 cm AI PHT 661.9 msec EDV 2D 139.4 cm3 LVOT Peak Simone 0.8 m/sec ESV 2D 121.4 cm3 LVOT Peak PG 2.9 mmHg LA Dimen 2D 4.4 2.3 - 4.0 cm MV E Peak Simone 0.6 m/sec MV A Peak Simone 0.7 m/sec MV E/A 0.8 MV Decel Time 292 msec MV Decel [place] 2 MV E/A 0.8 TR Peak Simone 2.9 m/sec TR Peak PG 33.4 mmHg RVSP 36.0 mmHg Findings Left Ventricle: Mild concentric left ventricular hypertrophy. Mild enlargement of left ventricle cavity. Severe left ventricular systolic dysfunction. Ejection fraction is visually estimated at 2530 %. Tissue Doppler/Mitral Doppler indices are consistent with impaired relaxation (Stage I diastolic dysfunction). Resting Segmental Wall Motion Analysis: Akinesis/dyskinesis of the septum and inferior burnette. Hypokinesis of the mid and distal inferolateral wall. Abnromal septal motion consistent with prior cardiac surgery. Right Ventricle: Mild right ventricular hypokinesis. Left Atrium: There is mild enlargement of left atrium. Right Atrium: There is mild enlargement of right atrium. Mitral Valve: Mitral valve leaflets appear mildly thickened. Moderate mitral valve regurgitation. Aortic Valve: Aortic cusps appear mildly calcified. Mild aortic valve regurgitation. Tricuspid Valve: Estimated peak PA systolic pressure 36 mmHg. There is mild tricuspid regurgitation. Pulmonic Valve: Normal pulmonic valve appearance. Pericardium: Normal pericardium with no significant pericardial effusion. Aorta: Normal aortic root. IVC: Normal size and normal respiratory collapse consistent with normal right atrial pressure. Conclusions 1.Mild concentric left ventricular hypertrophy. Mild enlargement of left ventricle cavity. Severe left ventricular systolic dysfunction. Ejection fraction is visually estimated at 25-30 %. Tissue Doppler/Mitral Doppler indices are consistent with impaired relaxation (Stage I diastolic dysfunction). Akinesis/dyskinesis of the septum and inferior burnette. Hypokinesis of the mid and distal inferolateral wall. Abnormal septal motion consistent with prior cardiac surgery. 2.Moderate mitral valve regurgitation. 3.Mild aortic valve regurgitation. 4.Estimated peak PA systolic pressure 36 mmHg based on RA pressure of 3 mmHg. Electronically Signed By: Luciano Lynch 16-Nov-2016 14:06:34 -0800 Patient Name: KELSEY STANLEY Study Date: 16-Nov-2016 [id number]
[2016-11-16] MEDS ORDERED: MAGNESIUM OXIDE 400 MG TAB PO ONE (14:30)
[2016-11-16] MEDS ORDERED: HEPARIN 1000 UNITS/ML 10 ML INJ ONE (15:33)
[2016-11-16] MEDS ORDERED: LIDOCAINE 1% (MDV) 20 ML INJ ONE (15:33)
[2016-11-16] MEDS ORDERED: IODIXANOL LOCM 100 ML BTL ONE ×2 (15:33→16:49)
[2016-11-16] MEDS ORDERED: MIDAZOLAM 1 MG/ML 2 ML INJ ONE (15:35)
[2016-11-16] MEDS ORDERED: FENTAnyl 50 MCG/ML VIAL ONE (15:35)
[2016-11-16] MEDS ORDERED: VERAPAMIL 5 MG INJ ONE (15:42)
--- NOTE | 2016-11-16 17:27 | OPR ---
Date/Time of Note Date/Time of Note DATE: 11/16/16 TIME: 17:20 Operative Report Free Text/Dictation Procedure Date:11/16/16 Procedures Performed: 1)Selective left and right coronary angiography 2)Selective HEAD angiography 3)Selective vein graft angiography 4)Aortogram 5)Peripheral angiography of the distal aorta and bilateral lower extremity arteries 6)Selective angiography of the right femoral artery Pre-operative Diagnosis:Unstable angina, claudication, CAD s/p CABG, PVD s/p bypass Post-operative Diagnosis:same Indications:76 yo M with a h/o CAD s/p CABG, PVD s/p left fem-tib bypass, who presented with chest pain and claudication. Cardiac cath was done to evaluate coronaries/grafts as well as peripheral arteries. Description of Procedure: After informed consent, the patient was brought to the cardiac catheterization lab. The procedure site was prepped and draped in usual manner. The patient was not premedicated due to h/o confusion with sedation. 10 mL lidocaine was injected into the right groin. Next using the Seldinger technique, the 6 [place] sheath was inserted into the right femoral artery. Next using the JL4, JR4, selective angiography of the left and right coronary arteries as well as HEAD and vein grafts were obtained.The pigtail was then advanced into the ventricle and hemodynamics obtained. Left ventricle angiography was not obtained. An aortogram was obtained next. Then the pigtail was used to do peripheral angiography of the pt's distal aorta and bilateral peripheral arteries. Next all equipment was removed and hemostasis was obtained by manual pressure. Findings: Anatomy/Hemodynamics: Left main:mild disease LAD:ostial 100%, the vessel fills faintly through the HEAD and partially from back flow through the SVG-diag graft. The vessel is small and diffusely diseased Diagonal:fills via SVG Circumflex:mid 40% Obtuse marginal: fills via Cx but a lower branch which is very small and diffusely disease fills via the SVG RCA:long are of stent mid to distal vessel which has mild ISR PDA:occluded and fills via right-right collaterals (unclear if there is an occluded stent in the prox PDA or this stent was in the previously patent distal SVG-PDA) PLV: small vessels with diffuse 50% disease HEAD-LAD patent but supplies a very small diffusely diseased vessel as above SVG-Diag patent SVG-OM mid 40% in small vein Aortogram did not reveal any other patent grafts Peripheral Angiography Distal aorta: no significant disease Left: Iliac, common femoral, profunda are free of significant disease. The popliteal is occluded below the knee and there is a patent vein graft from the mid SFA to the posterior tibial artery. Right: patent iliac stent, diffusely 40-50% disease in the SFA with 50% ISR of the mid-distal SFA stent and occlusion of popliteal below the knee. There is reconstitution via collaterals in a small peroneal artery. LV angiography:not done LV-Ao no significant pullback gradient LVEDP:12 mmHg Contrast used:120 mL Fluoroscopy time:9.5 min Assessment: Severe [place] coronary artery disease not amenable to stenting Patent HEAD and SVG-OM and SVG-Diag but supplying diffusely diseased vessels Severe PAD Plan: -medical management and uptitration of antianginals -vascular surgery evaluation for PAD CARLA QUINN Nov 16, 2016 17:27
[2016-11-16] MEDS ORDERED: ACETAMINOPHEN 325 MG TAB PO PRN (17:30)
[2016-11-16] MEDS: DOCUSATE SODIUM 100 MG CAP PO SCH (20:51)
[2016-11-16] MEDS: ATORVASTATIN 40 MG TAB PO SCH (20:57)
[2016-11-16] MEDS: TAMSULOSIN (SR) 0.4 MG CAP PO SCH (20:59)
[2016-11-16] MEDS: INSULIN GLARGINE [LANtus] 3 ML PEN SC SCH ×2 (21:06→23:22)
[2016-11-17] VITALS (7 sets, daily range): BP systolic 125–139; BP diastolic 56–67; PULSE 63–82; RESP 18–20
[2016-11-17] MEDS: PANTOPRAZOLE (EC) 40 MG TAB PO SCH (05:09)
--- NOTE | 2016-11-17 06:05 | CONS ---
DATE OF ADMISSION: 11/15/2016 DATE OF CONSULTATION: REASON FOR CONSULTATION: Peripheral vascular disease. Thank you, Dr. Galvan, for asking me to see this patient. HISTORY OF PRESENT ILLNESS: This is a 76-year-old male with a history of coronary artery bypass gra fting and a left lower extremity femoral pedal bypass grafting. The patient was admitted because of chest pain, underwent a cardiac angiogram which showed no evidence of any bypassable or angioplasty -able disease. He also had an angiogram which showed diffuse disease in the femoral and popliteal a rtery with complete obstruction of the right popliteal artery and small peroneal artery reconstituti ng distally in the foot. The patient has claudication, minimal rest pain, but no tissue loss. PAST MEDICAL HISTORY: Hypertension, hyperlipidemia, diabetes, coronary artery disease. PAST SURGICAL HISTORY: Coronary artery bypass grafting, left lower extremity pedal bypass. ALLERGIES: NONE. SOCIAL HISTORY: No smoking, drinking or drug use. REVIEW OF SYSTEMS: Negative. PHYSICAL EXAMINATION: VITAL SIGNS: Blood pressure is 110/62, pulse is 66, respirations 20, saturations 99%. Temperature is 98.8. HEENT: Normocephalic, atraumatic. PERRLA. NECK: Supple. No JVD, no carotid bruits. CARDIOVASCULAR: Regular rate and rhythm. LUNGS: Clear. ABDOMEN: Soft. EXTREMITIES: Warm all the way down to the toes. There is palpable femoral, no popliteal or pedal p ulses on either side. LABORATORY VALUES: Hemoglobin 9.8, white count 4.8, platelet count 161 and a creatinine of 0.99. IMPRESSION: Right lower extremity peripheral vascular disease. RECOMMENDATION: Will get a venous mapping to evaluate the existence of right lower extremity saphen ous vein. Discussed with the patient. All questions answered. Dictated By: STEPHANI SOTO/LITA Conf#: [id number] DID#: [id number]
[2016-11-17 06:13] LABS: ADD SCAN DIFF NO
[2016-11-17 06:27] LABS: BASOPHIL # 0.1 10^3/ul (0.0-0.1); BASOPHILS % 0.8 % (0.0-2.0); EOSINOPHILS # 0.1 10^3/ul (0.0-0.5); EOSINOPHILS % 1.8 % (0.0-7.0); HEMATOCRIT 28.3 % (42.0-52.0); HEMOGLOBIN 9.9 g/dl (14.0-18.0); LYMPHOCYTES # 1.4 10^3/ul (0.8-2.9); LYMPHOCYTES % 21.9 % (15.0-51.0); MEAN CORPUSCULAR VOLUME 97.3 fl (82.0-101.0); MEAN PLATELET VOLUME 12.1 fl (7.4-10.4); MONOCYTE # 0.6 10^3/ul (0.3-0.9); MONOCYTES % 9.2 % (0.0-11.0); NEUTROPHIL # 4.1 10^3/ul (1.6-7.5); PLATELET COUNT 161 10^3/UL (140-415); RED BLOOD COUNT 2.91 10^6/ul (4.70-6.10); RED CELL DISTRIBUTION WIDTH 14.2 % (11.5-14.5); WHITE BLOOD COUNT 6.2 10^3/ul (4.8-10.8)
[2016-11-17 06:44] LABS: POTASSIUM 4.4 mmol/L (3.5-5.1)
[2016-11-17 06:47] LABS: CALCIUM 9.1 mg/dl (8.4-10.2); CREATININE 1.09 mg/dl (0.61-1.24); MAGNESIUM 2.3 mg/dl (1.7-2.5)
[2016-11-17] MEDS ORDERED: ISOSORBIDE MONONITRATE(SR)60 MG TAB PO SCH (09:00)
[2016-11-17] MEDS: SENNA TAB PO SCH (09:00)
[2016-11-17] MEDS: ASPIRIN 81 MG TAB PO SCH (09:00)
--- NOTE | 2016-11-17 09:00 | RADRPT ---
PROCEDURE: Left lower extremity venous mapping. CLINICAL INDICATION: Preoperative for CABG. TECHNIQUE: The left greater saphenous vein was evaluated with ultrasound in the axial and sagittal planes. Diameter of the veins were determined as indicated below. COMPARISON: No prior studies are available for comparison. FINDINGS: Left greater saphenous vein: At groin: 0.29 cm. Upper thigh: 0.23 cm. Mid thigh: 0.21 cm. Lower thigh: 0.18 cm. At knee: 0.14 cm. Upper calf: 0.13 cm. Mid calf: 0.11 cm. The left greater saphenous vein demonstrates normal compressibility with no thrombus or occlusion. IMPRESSION: 1. Diameter of left greater saphenous vein as indicated above. 2. No thrombosis visualized. RPTAT: QQ .Amilcar Rizzo MD, Date Time Electronically viewed and signed by .Amilcar Rizzo MD, on 11/17/2016 08:59 .R/
--- NOTE | 2016-11-17 09:19 | CONS ---
Date/Time of Note Date/Time of Note DATE: 11/17/16 TIME: 09:16 Assessment/Plan Assessment/Plan Chief Complaint/Hosp Course Unstable angina/chest pain: s/p cath with patent bypass grafts but diffuse [place] vessel disease which could definitely cause angina. However there is nothing to revascularize by PCI. He will be managed medically and is currently asymptomatic PVD: left fem-tib bypass is patent, right popliteal is occluded and pt is being evaluated by Dr. Cazares Cardiomyoapthy: EF 25%. Will need outpt eval for ICD for primary prevention. Euvolemic on exam CAD s/p CAB yrs ago. Patent HEAD-LAD, SVG-diag, SVG-OM but supplying diffusely disease [place] vessels DM HTN HL -continue ASA/plavix, coreg -add imdur 60mg -vascular surgery eval -otherwise ok for discharge from cardiac standpoint Problems: Consultation Date/Type/Reason Admit Date/Time Nov 15, 2016 at 13:45 Initial Consult Date 11/15/16 Type of Consultation: Cardiology Referring Provider: MALIKA LEDEZMA MD 24 HR Interval Summary Free Text/Dictation s/p cath yesterday. No complaints. Walking around without chest pain Exam/Review of Systems Vital Signs Vitals Vital Signs Date Time Temp Pulse Resp B/P Pulse Ox O2 Delivery O2 Flow Rate FiO2 11/17/16 08:16 64 11/17/16 06:59 98.3 19 139/56 98 11/16/16 20:00 Room Air Intake and Output 11/16/16 11/16/16 11/17/16 15:00 23:00 07:00 Intake Total 120 ml Balance 120 ml Exam Constitutional: alert, oriented Psych: no complaints Head: normocephalic Neck: No jvd Respiratory: clear to auscultation, No crackles/rales Cardiovascular: regular rate and rhythm, No edema, No nl pulses Gastrointestinal: non-tender, soft Extremities: other (right groin without hematoma ) Neurological: nl mental status, nl speech Skin: No rash or lesions Results Result Diagram: 11/17/16 0548 11/17/16 0548 Results 24 hrs Laboratory Tests Test 11/16/16 20:53 11/16/16 23:16 11/17/16 05:48 11/17/16 07:55 Bedside Glucose 97 219 205 Anion Gap 15 Basophils # 0.1 Basophils % 0.8 Blood Urea Nitrogen 25 H Calcium Level 9.1 Carbon Dioxide Level 27 Chloride Level 105 Creatinine 1.09 Eosinophils # 0.1 Eosinophils % 1.8 Glucose Level 194 Hematocrit 28.3 L Hemoglobin 9.9 L Lymphocytes # 1.4 Lymphocytes % 21.9 Magnesium Level 2.3 Mean Corpuscular Hemoglobin 34.0 H Mean Corpuscular Hemoglobin Concent 35.0 Mean Corpuscular Volume 97.3 Mean Platelet Volume 12.1 H Monocytes # 0.6 Monocytes % 9.2 Neutrophils # 4.1 Neutrophils % 66.0 Nucleated Red Blood Cells # 0.0 Nucleated Red Blood Cells % 0.0 Platelet Count 161 Potassium Level 4.4 Red Blood Count 2.91 L Red Cell Distribution Width 14.2 Sodium Level 143 White Blood Count 6.2 # Medications Medications Current Medications Aspirin (Aspirin) 81 mg DAILY PO Last administered on 11/16/16 09:57; Admin Dose 81 MG; Start 11/15/16 at 18:00 Carvedilol (Coreg) 3.125 mg BID PO Last administered on 11/16/16 20:57; Admin Dose 3.125 MG; Start 11/15/16 at 21:00 Clopidogrel Bisulfate (plaVIX) 75 mg DAILY PO Last administered on 11/16/16 09 :57; Admin Dose 75 MG; Start 11/16/16 at 09:00 Docusate Sodium (Colace) 100 mg QHS PO Last administered on 11/15/16 20:37; Admin Dose 100 MG; Start 11/15/16 at 21:00 Insulin Glargine (Lantus) 10 unit QHS SC ; Start 11/15/16 at 21:00 Ofloxacin (Ocuflox) 1 drop QID BOTH EYES Last administered on 11/16/16 18:44; Admin Dose 1 DROP; Start 11/15/16 at 18:00 Senna (Senokot) 1 tab DAILY PO Last administered on 11/16/16 09:58; Admin Dose 1 TAB; Start 11/16/16 at 09:00 Tamsulosin HCl (Flomax) 0.4 mg HS PO Last administered on 11/16/16 20:59; Admin Dose 0.4 MG; Start 11/15/16 at 21:00 Miscellaneous Information 1 drop BID OP ; Start 11/15/16 at 21:00; Status UNV Lorazepam (Ativan) 0.5 mg Q8H PRN PO ANXIETY; Start 11/15/16 at 17:00 Ondansetron HCl (Zofran Inj) 4 mg Q6H PRN IV NAUSEA AND/OR VOMITING; Start 11/15 at 17:00 Nitroglycerin (Nitroglycerin (Sl Tab) 0.4 Mg) 1 tab Q5M PRN SL CHEST PAIN; Start 11/15/16 at 17:00 Acetaminophen (Tylenol Tab) 650 mg Q6H PRN PO PAIN LEVEL 1-3 OR FEVER; Start at 17:00 Morphine Sulfate (morphine) 1 mg Q4H PRN IV PAIN LEVEL 7-10; Start 11/15/16 at 17:00 Docusate Sodium (Colace) 100 mg Q12H PRN PO CONSTIPATION; Start 11/15/16 at 17: 00 Pantoprazole (Protonix Tab) 40 mg DAILY@06 PO ; Start 11/16/16 at 06:00 Enoxaparin Sodium (Lovenox) 40 mg DAILY SC Last administered on 11/16/16t 10:01 ; Admin Dose 40 MG; Start 11/16/16 at 09:00 Miscellaneous Information 1 ea NOTE XX ; Start 11/15/16 at 17:30 Glucose (Glutose) 15 gm Q15M PRN PO DECREASED GLUCOSE; Start 11/15/16 at 17:30 Glucose (Glutose) 22.5 gm Q15M PRN PO DECREASED GLUCOSE; Start 11/15/16 at 17:30 Dextrose (D50w Syringe) 25 ml Q15M PRN IV DECREASED GLUCOSE; Start 11/15/16 at 17:30 Dextrose (D50w Syringe) 50 ml Q15M PRN IV DECREASED GLUCOSE; Start 11/15/16 at 17:30 Glucagon (Glucagen) 1 mg Q15M PRN IM DECREASED GLUCOSE; Start 11/15/16 at 17:30 Glucose (Glutose) 15 gm Q15M PRN BUCCAL DECREASED GLUCOSE; Start 11/15/16 at 17: 30 Nepafenac ([place] Oph) 1 drop DAILY OPER ; Start 11/16/16 at 09:00; Status UNV Miscellaneous Information (*Order Clarification Bulletin) MEDICATION REQUIRES CLARIFICATION: Q8H XX Last administered on 11/16/16t 18:45; Admin Dose 1 EA; Start 11/15/16 at 18:00 Acetaminophen (Tylenol Tab) 650 mg Q4H PRN PO NON-CARDIAC PAIN LEVEL (1-3); Start 11/16/16 at 17:30 Atorvastatin Calcium (Lipitor) 80 mg QHS PO ; Start 11/17/16 at 21:00 Isosorbide Mononitrate (Imdur) 60 mg DAILY PO ; Start 11/17/16 at 09:00 CARLA QUINN Nov 17, 2016 09:19
[2016-11-17] MEDS: OFLOXACIN 0.3% 5 ML OPH BOTH EYES SCH (10:47)
[2016-11-17] MEDS: CLOPIDOGREL 75 MG TAB PO SCH (10:51)
[2016-11-17] MEDS: ENOXAPARIN 40 MG/0.4 ML SYG SC SCH (10:59)
--- NOTE | 2016-11-17 12:10 | PDOCDIS ---
Discharge Instructions CONDITION Patient Condition: Stable HOME CARE INSTRUCTIONS: Special Diet: 1800 ADA/ cardiac ACTIVITY: Activity Restrictions: No Restrictions FOLLOW UP/APPOINTMENTS Appointments Follow up with cardiology as outpatient Follow up with vascular surgeon as outpatient Follow up with primary care physician as outpatient MALIKA LEDEZMA MD Nov 17, 2016 12:10
[2016-11-17] MEDS ORDERED: ISOS60TA PO (12:13)
[2016-11-17] MEDS ORDERED: CLOP75TA27 PO (12:13)
[2016-11-17] MEDS ORDERED: TAMS0.4C2 PO (12:13)
[2016-11-17] MEDS ORDERED: CARV3.1260 PO (12:13)
[2016-11-17] MEDS ORDERED: LORA-441 PO (12:13)
[2016-11-17] MEDS ORDERED: PANT40TA4 PO (12:13)
[2016-11-17] MEDS ORDERED: ATOR80TA75 PO (12:13)
[2016-11-17] MEDS ORDERED: ASPI81TA3 PO (12:13)
[2016-11-17] MEDS ORDERED: METF500T4 PO (12:17)
[2016-11-17] MEDS ORDERED: LISI2.5T59 PO (12:29)
[2016-11-17] MEDS ORDERED: ATORVASTATIN 80 MG TAB PO SCH (21:00)
--- NOTE | 2016-11-19 07:50 | DS ---
DATE OF ADMISSION: 11/15/2016 DATE OF DISCHARGE: 11/17/2016 CONSULTANTS: 1. Cardiology. 2. Vascular surgeon. PROCEDURES: 1. A 2D echocardiogram which demonstrated mild concentric left ventricular hypertrophy. Mild enlar gement of the left ventricular cavity. Severe left ventricular systolic dysfunction. Ejection frac tion is visually estimated at 25% to 30%. Stage I diastolic dysfunction. Akinesis and diakinesis o f the septum and inferior wall. Hypokinesis of the mid and distal inferior lateral burnette. Abnormal septal motion consistent with prior cardiac surgery. Moderate mitral valve regurgitation. Mild ao rtic valve regurgitation. Estimated peak PA systolic pressure 36 mmHg. 2. Selective left and right coronary angiography, selective HEAD angiography, selective vein graft arteriogram and peripheral angiography of the distal aorta and bilateral lower extremity arteries, s elective angiography of the right femoral artery. The finding of severe cherokee coronary artery dise ase not amendable to stenting, patent HEAD and SVG/OM and SVG/diagonal, diffuse decreased vess els. Severe peripheral arterial disease. DISCHARGE DIAGNOSES 1. Severe peripheral arterial disease. Continue aspirin, Plavix, statin. Vascular surgeon was con sulted. Follow up with vascular surgeon as an outpatient. 2. Chest pain with history of coronary artery disease and coronary artery bypass graft. Continue a spirin, Plavix, statin and beta waqar. Status post left heart catheterization 3. Dyslipidemia. Lipitor has been increased to 80 mg. 4. Benign prostatic hypertrophy. Continue Flomax. 5. Essential hypertension. Continue Coreg. The patient will be started on low dose of lisinopril. 6. Diabetes mellitus. Continue Lantus and patient has been started on metformin. 7. Gastroesophageal reflux disease. Continue proton pump inhibitor. MEDICATIONS: 1. Lipitor 80 mg. 2. Isosorbide mononitrate 60 mg 3. Lorazepam 0.5 mg 4. Metformin 500 mg. 5. Protonix 40 mg. 6. Aspirin 81 mg. 7. Coreg 3.125 mg 8. Plavix 75 mg 9. Colace 100 mg. 10. Lantus 10 units. 11. Senna 1 tab. 12. Flomax 0.4 mg. Eyedrops are as follows: 1. Durezol. 2. Ilevro. 3. Ocuflox. ALLERGIES: CODEINE. HOSPITAL COURSE: This is a 76-year-old gentleman with past medical history of peripheral vascular d isease, peripheral arterial disease, coronary artery disease status post CABG, dyslipidemia, hyperte nsion, diabetes mellitus, diabetic neuropathy, BPH, anemia, whom was seen and evaluated by primary c are physician at [facility], evaluated for lower extremity arterial disease and finding abnormalit y on CT angiogram. The patient was sent to [facility] for further evaluation, although patient decided to sign out AMA and left home. On 11/15/2016, the patient presented to [facility] co mplaining of having chest discomfort. Cardiology was consulted in the ER. The patient's EKG showed first degree AV block, normal axis, single PVC, T-wave inversion with slight ST depression concerni ng for ischemia, no ST elevation. The patient was treated with aspirin was seen and evaluated by ca rdiology and vascular surgeon. A 2D echocardiogram was obtained, which showed ejection fraction of 25% to 30% with stage I diastolic dysfunction, akinesis and diakinesis of the septum and the inferio r wall, hypokinesis of the mid and distal inferior lateral wall, abnormal septal wall motion consist ent with prior cardiac surgery. The patient had a left heart catheterization, selective right coron josue angiography and was found to have severe cherokee coronary artery disease not amenable for stentin g, patent HEAD. Although patient was found to have severe peripheral arterial disease in the lower extremity, as per vascular surgeon at this time, the patient's saphenous vein was used for femoral-t ibial bypass and his right saphenous vein was used for CABG. Vascular mapping was done and at this time, he has no real issue or loss of blood supply. He has been cleared by vascular surgeon for dis charge. He is also cleared by cardiology for discharge. At this time, the patient denies any ches t pain or shortness of breath. His vitals are stable with temperature 97.7, pulse 64, respirations 18, blood pressure 124/57, oxygen 99% in room air. LABORATORY DATA: Sodium 143, potassium 4.4, chloride 105, bicarbonate 27, BUN 25, creatinine 1.09, glucose 194, calcium 9.1, magnesium 2.3. Hemoglobin is 8.6. WBC 6.3, hemoglobin 9.9, hem atocrit 28.3, platelet 161. CONDITION AT TIME OF DISCHARGE: Stable for discharge to follow up with cardiology, primary care khang rosario and vascular surgeon as outpatient. Dictated By: MALIKA LEDEZMA MD PN/NTS Conf#: [id number] DID#: [id number]
== END 2016-11-17 13:55 | disposition home or self-care (01) ==
LOC: E/R 09:56 → TEL 13:45 → INTOOBSV 14:38 → UNDOADMOB 14:38
PROVIDERS: ADMIT Family Medicine; ATTEND Family Medicine
DX: R07.9 Chest pain, unspecified (principal); I25.10 Atherosclerotic heart disease of native coronary artery without angina pectoris; Z95.1 Presence of aortocoronary bypass graft; E78.5 Hyperlipidemia, unspecified; N40.0 Benign prostatic hyperplasia without lower urinary tract symptoms; I10 Essential (primary) hypertension; I73.9 Peripheral vascular disease, unspecified; E11.9 Type 2 diabetes mellitus without complications
CPT/HCPCS: 36415; 71010; 80048; 80061; 82550; 82553; 82962; 83036; 83735; 84484; 85025; 85610; 85730; 93005; 93306; 93459; 93970; 96372; 96374; 99285; C1769; C1887; C1894; G0378; J1644; J1650; J1815; J2250; J3010; J3475; Q9967